=== PATIENT | female | born 1995 | race Caucasian/White ===

== ENCOUNTER 2017-08-06 02:00 | Emergency (ER) | payer BC ==
[~2017-08-06] VITALS: Ht 154.9 cm; Wt 48.1 kg
--- NOTE | 2017-08-06 02:32 | NUR ---
DR KWESI HERNANDEZ MD AT BEDSIDE FOR MSE.
--- NOTE | 2017-08-06 02:49 | NUR ---
RADIOLOGY AT BEDSIDE FOR XRAY.
--- NOTE | 2017-08-06 03:16 | NUR ---
Patient discharged to home in stable conditon. Written and verbal after care instructions given. Patient verbalizes understanding of instructions. No distress noted. Pt took all personal belongings.
[2017-08-06 03:18] VITALS: BP 115/79
== END 2017-08-06 03:19 | disposition home or self-care (01) ==
LOC: ER 02:04
DX: S16.1XXA Strain of muscle, fascia and tendon at neck level, initial encounter (principal); V43.62XA Car passenger injured in collision with other type car in traffic accident, initial encounter; Y92.410 Unspecified street and highway as the place of occurrence of the external cause; Y93.89 Activity, other specified; Y99.8 Other external cause status
CPT/HCPCS: A4663